=== PATIENT | male | born 1950 | race Caucasian/White ===

== ENCOUNTER → 2019-02-09 12:59 | Outpatient (CLI) | payer OTHER, SELFPAY | PROVIDERS: PCP Physician Assistant Medical; Visit Provider Orthopaedic Surgery | DX: Z01.818 Encounter for other preprocedural examination (principal) | CPT/HCPCS: 93005 ==

== ENCOUNTER 2019-02-24 10:47 | Inpatient (IN) | payer OTHER, SELFPAY ==
[2019-02-12 12:56] VITALS: BMI 29.8
[2019-02-24] VITALS (14 sets, daily range): BP systolic 100–160; BP diastolic 40–76; PULSE 70–105; RESP 13–24; TEMP 36.6–37; O2SAT 93–100; BMI 29.8
--- NOTE | 2019-02-24 06:00 | DI.RAD.S_ITS ---
PROCEDURE: XR KNEE RT 1TO2V INDICATIONS: post operative total right knee TECHNIQUE: 2 view(s) of the knee acquired. COMPARISON: [facility] [place], LEVI, XR KNEE ARTHRITIC SERIES RT, 12/16/2018, 11:20. FINDINGS: Bones: Patient is status post knee joint arthroplasty. Hardware components are in expected positions. Visualized bony structures are intact. Soft tissues: Overlying postoperative changes are noted. IMPRESSION: Total right knee arthroplasty with prosthesis in anatomic alignment. Dictated by: Nohelia Farfan M.D. on 02/24/2019 at 14:54 Approved by: Nohelia Farfan M.D. on 02/24/2019 at 14:55
[2019-02-24] MEDS: LACTATED RINGERS 1,000 ML 42 ML IV (11:09)
[2019-02-24] MEDS: CELECOXIB 200 MG CAPSULE PO (11:13)
[2019-02-24] MEDS: ACETAMINOPHEN 325 MG TABLET 975 MG PO ×3 (11:13→20:33)
[2019-02-24] MEDS: PREGABALIN 75 MG CAPSULE PO (11:13)
--- NOTE | 2019-02-24 12:09 | PM.PREOP ---
Pre-operative Note Interval Note History & Physical reviewed/Exam performed by Physician: Yes Changes to H&P: No
[2019-02-24] MEDS: CEFAZOLIN 2 GM/100 ML FROZ.PIGGY IV (12:35)
--- NOTE | 2019-02-24 13:05 | SUR.OPER ---
Supine on padded OR bed. Pillow under head, arms secured on padded armboards <90 degree abduction. Safety belt across torso. Non-operative leg secured with tape over blanket over lower leg. Operative leg secured in DeMayo/Deshawn positioner.
[2019-02-24] MEDS: BUPIVACAINE 0.25% W/ EPI 30 ML VIAL 60 ML INJ (13:14)
[2019-02-24] MEDS: BUPIVACAINE LIPOSOME 266 MG/20 ML VIAL INJ (13:15)
[2019-02-24] MEDS: MORPHINE 4 MG/ML INJ INJ (13:16)
[2019-02-24] MEDS: TRANEXAMIC ACID 1,000 MG VIAL 1000 MG INJ ×2 (13:17→14:24)
--- NOTE | 2019-02-24 14:21 | PM.OP.1 ---
Operative Date/Time/Diagnoses Date of procedure: 02/24/19 Time of procedure: 14:10 Pre-op diagnosis: Right knee osteoarthritis Post-op diagnosis: same Procedure & Clinicians Procedure: Right total knee replacement Same procedure as scheduled: Yes Indications: The patient has had progressively worsening right knee pain with radiographic changes consistent with arthritis. Non-operative management has failed and the patient has requested total knee replacement. The risks, benefits and alternatives to surgery were discussed with the patient prior to proceeding. Risks discussed included, but were not limited to, failure to relieve pain, stiffness, infection, nerve damage, deep venous thrombosis, pulmonary embolism, stroke, coma, heart attack, permanent paralysis and , as well as the potential need for eventual revision of the prosthetic. Surgeon: Sb Wilson [employer] Consultant: Sunil Yanes Click Yes if Unassisted: No Anesthesia Type: General, Spinal and Local Operative Notes Findings: Severe medial compartment osteoarthritis with moderate patellofemoral involvement. Closure Type: primary Specimen(s): none sent Prosthetic devices, grafts, tissues, transplants, or devices: Implants used in this procedure were manufactured by the [employer] and [employer] and included the BCS II Journey total knee replacement with a size 6 right cobalt chromium femoral component, size 5 right non porous tibial base plate, a 9 mm cross-linked polyethylene insert and a 32 mm oval Dodie II patella. Applied: implant(s) Estimated Blood Loss (mL): 25 Blood products transfused: none Tourniquet time (min): 51 Procedure in detail: The patient was seen in the pre-operative area, where the patient identified the right knee as the operative site and this was marked with my initials. The patient received pre-operative antibiotics, and was taken to the operating room and placed on the operative table in the supine position. After satisfactory anesthesia, a realtime court reporter out was performed. The right leg was encircled with a tourniquet about the proximal thigh, and the leg was prepared from the toes to the tourniquet with ChloroPrep in the usual fashion and draped through sterile drapes. The leg was elevated and exsanguinated with Eschmark bandage and the tourniquet inflated to 250 mmHg pressure. The knee was approached through an approximately 18 cm incision centered over the patella and carried into the knee through a medial parapatellar arthrotomy. The anterior osteophytes and soft tissues were removed. The rotational landmarks of [place]'s line and the transepicondylar axis were marked on the femur with electrocautery, and intramedullary guide holes for the femur and tibia were created. The distal femoral cut was made in 6 degrees of valgus using the intramedullary guide at the +2 cut setting due to a pre-existing flexion contracture. The proximal tibial cut was then made using the intramedullary guide, taking 9 mm of bone off the less involved side. The extension gap was checked and the rotation of the femoral component confirmed with the gap balancing system. The anterior, posterior and chamfer cuts were then made. The posterior osteophytes and soft tissues were then removed. The posterior capsule was injected with part of a mixture of 60 ml 0.25% Marcaine mixed with 20 ml Exparel and 4 mg of morphine for post-operative pain control. The remainder of this mixture was injected into the capsule and subcutaneous tissues during cement curing. The tibia was prepared with the rotation set by an extra medullary guide. Trial tibial and femoral components were then placed and the intercondylar notch cut through the femoral trial. Range of motion was 0-135 degrees, with good stability throughout the range. The patella was then cut to accommodate the patellar prosthetic. There was no need for a lateral release. The trials were then removed, and the femoral hole plugged with a bone plug. The bone was prepared with pulsatile lavage, and dried with a sponge. Cement was applied and the final prosthetics placed. Excess cement was removed during and after cement curing. After confirming there was no extruded cement posteriorly, the final tibial insert was placed. The knee was copiously irrigated and the tourniquet deflated. Hemostasis was obtained. The capsule was closed with interrupted # 2 polyester suture. The subcutaneous layer was closed with 3-0 Vicryl, and the skin with a running 3-0 V-Lock suture and SteriStrips. An Aquacel Ag dressing was applied and the patient was taken to recovery having tolerated the procedure well. Complications: none Condition: stable Disposition: PACU Plan for aftercare: The patient will be maintained on a standard total knee replacement protocol with weight bearing as tolerated. The patient will receive aspirin and sequential compression devices for DVT prophylaxis. The patient will be discharged home when safe for the home environment.
--- NOTE | 2019-02-24 14:37 | SUR.PHASEI ---
care transferred to Jacoby Lovett RN,report given.
--- NOTE | 2019-02-24 14:41 | SUR.PHASEI ---
assumed care from Carlos A Bustamante RN. Pt in stable condition, mostly sleeping but arousing to name
--- NOTE | 2019-02-24 15:31 | SUR.PHASEI ---
Pt transferred to room 213 in stable condition, report given to CHARLES Silva. VSS, SCDs started, pt continued to deny pain.
--- NOTE | 2019-02-24 15:33 | PT.IPTN ---
Current Diagnoses Unilateral primary osteoarthritis, right knee (02/24/19) Surgery Performed Operation Date: 02/24/19 12:45 Actual Procedures p Total Knee Arthroplasty(Right) - Sb Wilson MD Physical Therapy Treatment Note M3 PT-IP Subjective Start: 02/24/19 15:32 Freq: NEEDED Status: Active Protocol: Document 02/24/19 15:32 AB (Rec: 02/24/19 15:33 AB [id number]) Subjective Physical Therapy Visit Type Notes checked on pt and nurse stated that pt just came up to the floor ~ 3 min ago. pt stated that he wants to wait at this time but will be willing to try to do it later today.
[2019-02-24] MEDS: LACTATED RINGERS 1,000 ML 125 ML IV ×2 (15:39→23:57)
[2019-02-24] MEDS: OXYCODONE IR 5 MG TABLET PO ×2 (16:18→23:59)
--- NOTE | 2019-02-24 17:12 | PT.IIE ---
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) HLD (hyperlipidemia) (Acute) HTN (hypertension) (Acute) Physical Therapy Inpatient Evaluation/Re-Eval M1 PT/OT-IP Prior Functional Status Start: 02/24/19 15:32 Freq: NEEDED Status: Active Protocol: Document 02/24/19 17:07 [facility] (Rec: 02/24/19 17:12 [facility] [id number]) Medical Review Prior Functional Status Medical History Reviewed Yes Diet/Fluid Consistency Regular Communication WNL Mobility and Gait indep without AD, had to move slowly d/t pain Activities of Daily Living and IADL's Indep Prior Functional Level (Other details) Stays at friends house at night but stays at [place] house in [place] community during the day. 5STE at friends house Social History Household Members none Living Arrangements House Number of Floors (Floors) One Floor Number of Stairs To Enter/Railing? no steps to enter Home Environment Standard Height Toilet Tub/Shower Home Equipment Front Wheel Walker Quad Cane Straight Cane Raised Toilet Seat w/Armrests Employment Status Retired M2 PT-IP Current Condition Start: 02/24/19 15:32 Freq: NEEDED Status: Active Protocol: Document 02/24/19 17:07 [facility] (Rec: 02/24/19 17:12 [facility] [id number]) Physical Therapy Current Condition Current Condition Evaluation Date 02/24/19 Treatment Diagnosis R TKA Weight Bearing Status Weight Bearing Status Weight Bear as Tolerated M3 PT-IP Subjective Start: 02/24/19 15:32 Freq: NEEDED Status: Active Protocol: Document 02/24/19 17:07 [facility] (Rec: 02/24/19 17:12 [facility] [id number]) Subjective Physical Therapy Visit Type Type Initial Evaluation Visit Start Time 16:00 Visit Stop Time 16:50 Total Visit Minutes 50 Number of BRIDGE EXPERT Visits 0 Physical Therapy Visit Comments Patient Goals Pt plans to go home tomorrow or day after depending on how he is doing. Reports he has good support Therapy Pain Assessment Pain When Pain Assessed During Mobility Pain Present Pain Present Pain Reported Location R knee Description Aching Pain Management Techniques Apply Cold Re-positioning Timing of Activity with Medications M4 PT-IP Mobility and Gait Start: 02/24/19 15:32 Freq: NEEDED Status: Active Protocol: Document 02/24/19 17:07 [facility] (Rec: 02/24/19 17:12 [facility] [id number]) PT-Bed Mobility Assessment Supine to Sit Supine to Sit Standby Assistance Head of Bed Elevated Bedrails Scooting Scooting to Edge of Bed Standby Assistance PT-Transfer Assessment Sit to and From Stand Sit to and from Stand Contact Guard Assistance Use of Upper Extremities Equipment Transfer Assistive Device Gait Belt Front Wheeled Walker Orthotic/Prosthetic Devices or Brace: No Comments Mobility Comments Pt stood to amb around room then sat down Gait Assessment Gait Gait Assistance Required: Contact Guard Assist Distance (Feet) 50 Able to Maintain Weight Bearing Status Yes During Gait Assistive Devices Assistive Device Gait Belt Front Wheeled Walker Gait Deviations General Gait Pattern Antalgic Decreased Stride Length Flexed Trunk Factors Limiting Gait Function Factors Limiting Gait Function Decreased Strength Limited Range of Motion Pain Comments Gait Comments Pt amb with small steps around with cueing for step to pattern and use of UE with FWW . He was able to amb with CGA PT-Balance Assessment Sitting Balance and Reactions Static Sitting Balance Ability Good Dynamic Sitting Balance Ability Good Standing Balance and Reactions Static Standing Balance Ability Fair Dynamic Standing Balance Ability Fair Device Used FWW M5 PT-IP Objective Assessments Start: 02/24/19 15:32 Freq: NEEDED Status: Active Protocol: Document 02/24/19 17:07 [facility] (Rec: 02/24/19 17:12 [facility] [id number]) Orientation Orientation/Cognition Level of Alertness Alert Gross Range of Motion Lower Extremity ROM Assessment Right Impaired Strength Lower Extremity Strength Assessment Right Impaired M6 PT-IP Treatment Start: 02/24/19 15:32 Freq: NEEDED Status: Active Protocol: Document 02/24/19 17:07 [facility] (Rec: 02/24/19 17:12 [facility] [id number]) Physical Therapy Treatment Education Education Provided Weight Bearing Status Post-Op Packet Safety M7 PT-IP Assessment and Plan Start: 02/24/19 15:32 Freq: NEEDED Status: Active Protocol: Document 02/24/19 17:07 [facility] (Rec: 02/24/19 17:12 [facility] [id number]) PT Summary Assessment and Plan Potential Rehabilitation Potential Good Status of Condition at Evaluation Evolving Summary Impairments Pain ROM Strength Balance Bed Mobility Transfers Gait Activity Tolerance Assessment Summary Pt had R TKA today and at this time is having good pain control and overall good mobility with cueing for technique. He is motivated and has good friend support and is likely to cont to advance well to be safe to return home after hospitalization. Goals Bed Mobility Goal Independent Transfer Goal Independent Gait Goal Standby Assistance Gait Distance 150ft Other Goals up/down 5 stairs SBA Days to Meet Goals 3 Frequency of Treatment Frequency Of Treatment Twice a Day Treatment Plan Physical Therapy Treatment Plan Bed Mobility Training Transfer Training Gait Training Therapeutic Exercise Balance Retraining Post Op Education Discharge Planning Neuromuscular Re-ed Other Recommendations and Next Treatment stairs & exercises, bed Focus mobility to/from flat bed Recommendations To Nursing Amount of Assist Needed 1 Person Assist Discharge Recommendations PT Discharge Recommendations Home with Assistance Outpatient PT
[2019-02-24] MEDS: ASPIRIN EC 81 MG TABLET PO (20:33)
[2019-02-24] MEDS: DOCUSATE 100 MG CAPSULE PO (20:34)
[2019-02-24] MEDS: lamoTRIgine 100 MG TABLET 200 MG PO (20:34)
[2019-02-24] MEDS: ATORVASTATIN 20 MG TABLET PO (20:34)
--- NOTE | 2019-02-24 23:07 | PC.NURSE ---
Pt is doing very well with minimal pain, PO oxycodone, as needed; c/m/s to right LE present and PPP; Karlos wrap and Aquacell drsg c/d/i; VSS; IV fluids infusing; tolerating regular diet; IS 2500 X 10 breaths, instructed to use Q 1 H
[2019-02-25] MEDS: TRAZODONE 100 MG TABLET 200 MG PO
[2019-02-25] MEDS: SODIUM CHLORIDE 0.9% FLUSH 10 ML IV ×2 (01:10→08:59)
--- NOTE | 2019-02-25 01:23 | CM.MNRNOTE ---
0110 Pt. requested to stop LR, states I can't sleep I been using the urinal all the time. Also I been drinking lots of water. LR Dc'd. & IV access saline locked. Will cont. POC & monitor.
[2019-02-25] MEDS: OXYCODONE IR 5 MG TABLET PO ×3 (05:33→12:23)
[2019-02-25 05:42] VITALS: BP 114/53; PULSE 75; RESP 17; TEMP 36.8; O2SAT 96
--- NOTE | 2019-02-25 06:59 | PC.NURSE ---
Pt. refused blood draw earlier. Talked to pt. & he agreed to a blood draw now. Lab called & informed Mara that pt. agreed to draw his blood now. Will report to day RN.
[2019-02-25 07:15] LABS: Hematocrit 35.1 % (41-53)
[2019-02-25 07:20] LABS: Hemoglobin 12.8 g/dL (13.5-17.5)
--- NOTE | 2019-02-25 07:28 | P.DS_ITS ---
History of Present Illness Date Patient Seen: 02/25/19 Time Patient Seen: 07:27 Chief complaint: [id number] Narrative: The history and physical are contained in the chart previously completed note. Please refer to that note for this information. Discharge Providers Date of admission: 02/24/19 10:47 Discharge Date: 02/25/19 Primary care physician: Corrina Ramsay PA-C Consults: 02/24/19 15:26 Consult to Discharge Planning Routine Comment: Consult to Physical Therapy Evaluate & Treat Comment: Physician Instructions: postop TKA protocol Discharge provider: Sb Wilson MD Summary Discharge Diagnosis: 1. Right knee osteoarthritis 2. Mild post hemorrhagic anemia Hospital Course: The patient was admitted to the hospital and taken directly to the operating room on February 24, 2019 where he underwent a right total knee replacement. He was stable overnight and was quite comfortable on postoperative day 1. At the time of this dictation it is anticipated he will be able to discharge today. Status at Discharge Cognitive/behavioral status at discharge: oriented Functional status at discharge: uses cane/walker Overall status at discharge: patient is progressing back to baseline Time Spent with Patient Less than 30 minutes Exam Vital Signs (past 8 hours): - 02/25/19 05:42 Temperature 98.3 F Pulse Rate 75 Respiratory Rate 17 Blood Pressure 114/53 L Pulse Oximetry 96 Oxygen Delivery Method Room Air Oxygen Flow Rate 0 Narrative Exam Narrative: Right knee wound is dressed with no drainage on the bandage. Calf is soft. Light touch and motion are intact in the right lower extremity. Objective Labs Result Diagrams: 02/25/19 07:05 Labs: Laboratory Results - last 24 hr 02/25/19 07:05 Hgb 12.8 L Hct 35.1 L Discharge Plan Discharge Plan Patient Disposition: Home Discharge Med Rec/Prescriptions Prescriptions: New acetaminophen 325 mg Tablet 975 mg PO TID 30 Days Qty: 270 RF: 0 aspirin 81 mg Tablet,Delayed Release (Dr/Ec) 81 mg PO BID 42 Days Qty: 84 RF: 0 oxycodone 5 mg Tablet 5 mg PO Q3HR PRN (Reason: Pain, Moderate (4-6)) Qty: 40 RF: 0 hydroxyzine pamoate 25 mg Capsule 25 mg PO Q6HR PRN (Reason: Nausea) Qty: 40 RF: 0 Continued venlafaxine [Effexor XR] 75 MG capsule,extended release 24hr 2 tab PO QAM Qty: 0 RF: 0 lamotrigine [Lamictal] 100 MG tablet 200 mg PO HS Qty: 0 RF: 0 atorvastatin [Lipitor] 20 MG tablet 20 mg PO HS Qty: 0 RF: 0 trazodone 100 MG tablet 2 tab PO HS Qty: 0 RF: 0 multivitamin [Multiple Vitamins] 1 EACH tablet 1 tab PO QDAY Qty: 0 RF: 0 cholecalciferol (vitamin D3) [Vitamin D3] 1,000 UNIT tablet 1,000 unit PO QDAY Qty: 0 RF: 0 latanoprost 0.005 % drops 1 drp OPHTH QAM Qty: 0 RF: 0 losartan 100 MG tablet 100 mg PO QAM Qty: 0 RF: 0 diclofenac sodium 1 % Gel 2 g TOPICAL QAM RF: 0 Vraylar 1.5 mg Capsule 1.5 mg PO DAILY RF: 0 Follow up/Referrals: Sb Wilson MD [Physician] - 3-5 Days Corrina Ramsay PA-C [Primary Care Provider] - Provider Discharge Instructions Diet: Diet as Tolerated and Regular Activity: You may bear weight as tolerated on her right leg. Cold/Heat Therapy: Apply ice to the right knee for 15 minutes every hour as need ed for pain. Skin/Wound/Dressing Care Report to your healthcare provider any signs of infection, such as:: chills, fever, night sweats, increased pain, unusual drainage and unusual redness Dressing: You may remove the Karlos wrap 3 days after surgery. Leave the deeper dressing in place until your 1st follow-up. If the center strip of the deeper dressing becomes saturated with either water or blood please call the office. You may shower with the deeper dressing in place. Visit Report/Discharge Packet Instructions: DI for Knee Replacement Stand Alone Forms: Surgery Discharge Discharge Data Primary Care Provider: Corrina Ramsay Attending Provider: Sb Wilson Admit Date/Time: 02/24/19 10:47
[2019-02-25 07:53] VITALS: BP 126/91; PULSE 71; RESP 18; TEMP 36.7; O2SAT 96
--- NOTE | 2019-02-25 08:08 | PC.NURSE ---
Addendum entered by Shannan Grant R.N. 02/25/19 12:59: DC - reviewed dc instructions with pt and spouse, given 5mg po oxycodone with lunch for transport home, SL removed, belongings gathered, including glasses, cell phone and spool cleaner, back pack, clothing, shoes, own fww and cane, tsf to and escorted to family car by order runner. Addendum entered by Shannan Grant R.N. 02/25/19 10:46: PAIN/MS - given 5mg oxycodone prior to mobilization with phys therapy, amol up with PT ambul w/fww, gait steady, cleared for DC. Original Note: AM NOTE - pt lying bed, alert, minimal discomfort r knee, states 1-2 on scale 0/10, earlier oxycodone providing adequate relief, small spot shadow drainage distal end aquaclell, edwin wrap over, + cms, wiggles toes, moving ankle on command, scd on, denies nausea, + flatus, discussed pain mgt and mobilization this am with phys therapy.
[2019-02-25] MEDS: LATANOPROST 0.005% OPHTH 2.5 ML 1 DROPS EYE-BOTH (08:58)
[2019-02-25] MEDS: ASPIRIN EC 81 MG TABLET PO (08:59)
[2019-02-25] MEDS: MELOXICAM 7.5 MG TABLET 15 MG PO (09:00)
[2019-02-25] MEDS: ACETAMINOPHEN 325 MG TABLET 975 MG PO (09:00)
[2019-02-25] MEDS: DOCUSATE 100 MG CAPSULE PO (09:01)
[2019-02-25] MEDS: VENLAFAXINE ER 75 MG CAP 150 MG PO (09:02)
[2019-02-25] MEDS: LOSARTAN 50 MG TABLET 100 MG PO (09:02)
[2019-02-25 11:45] VITALS: BP 131/60; PULSE 71; RESP 18; TEMP 36.6; O2SAT 95
--- NOTE | 2019-02-26 08:28 | CM.IDA ---
Late Entry/Initial DCP Assessment Note: Pt is a 68 yo male, resident of [place], now POD#1 from Rt knee surgery w/ Dr Wilson . PCP: Corrina Ramsay Payer: Regina PABON Reviewed chart, pt discussed in multidisciplinary rounds this morning. Therapy has cleared pt for return home w/family to assist and pt has planned for home, DC order from Ortho [facility] has already been initiated this morning pending clearance from therapy team. No needs expected from DC planning team although will remain available in case this changes today. RYAN Villagran
== END 2019-02-25 13:15 | disposition home or self-care (01) | DRG 470 ==
PROVIDERS: Admitting Provider Orthopaedic Surgery; PCP Physician Assistant Medical; Visit Provider Orthopaedic Surgery
PROC: 0SRC0JZ Replacement of Right Knee Joint with Synthetic Substitute, Open Approach (ICD-10-PCS; CPT 27447; principal; 2019-02-24 12:45)
DX: M17.11 Unilateral primary osteoarthritis, right knee (principal); G47.33 Obstructive sleep apnea (adult) (pediatric); I10 Essential (primary) hypertension; E78.5 Hyperlipidemia, unspecified; F32.9 Major depressive disorder, single episode, unspecified
CPT/HCPCS: 36415; 73560; 85014; 85018; 97116; 97162; 97530; C1776; C9290; J0690; J1100; J2250; J2270; J2405; J2704

== ENCOUNTER → 2019-04-29 09:31 | Outpatient (CLI) | payer OTHER, SELFPAY ==
[2019-02-24 15:28] VITALS: BMI 29.8
--- NOTE | 2019-04-29 | DI.NM.S_ITS ---
PROCEDURE: NM JAMESON PERF SPECT R&S PHARM Rest and pharmacological stress myocardial perfusion SPECT with gated imaging and ejection fraction RADIOPHARMACEUTICAL: 13.2 mCi Tc-99m tetrafosmin IV at rest and 26.1 mCi Tc-99m tetrafosmin IV at peak effect of pharmacological stress. [id number] was performed. INDICATIONS: Abnormal electrocardiogram [ECG] [EKG] TECHNIQUE: Radiopharmaceutical was injected at peak stress test, and also at rest. SPECT images were obtained. SPECT myocardial perfusion images were displayed in short axis, horizontal long axis, and vertical long axis views. Gated images were reviewed using [employer] software. COMPARISON: None. CARDIAC STRESS: A pharmacologic stress test was performed under the supervision of an attending staff, using an infusion of lexiscan 0.4mg IV X1. Hemodynamic data: There is normal blood pressure and heart rate response to pharmacologic stress. Symptoms: The patient denied anginal chest pain. Aminophylline: none EKG: No diagnostic changes of ischemia; no ectopy. FINDINGS: Raw data: There is good myocardial uptake of radiotracer. No significant motion artifacts. Left ventricle function: Gated images demonstrate normal left ventricular wall thickening. No segmental wall motion abnormalities. No transient ischemic dilation; TID is 0.87 (normal less than 1.3). Left ventricle resting end diastolic volume is 115 mL. Left ventricle stress ejection fraction is 70%; normal range is above 45%. Myocardial perfusion: There is a mildly intense small defect at the apex during rest that improves with stress, suggesting artifact but old apical non-transmural infarct can't be excluded. No ischemia. IMPRESSION: Low risk, probably nuclear stress test. 1) Probably normal perfusion images. There is a mildly intense small defect at the apex during rest that improves with stress, suggesting artifact but old apical non-transmural infarct can't be excluded. No ischemia.. 2) Normal left ventricular size, wall motion, and systolic function (EF post stress 70%). 3) No ECG evidence of ischemia. 4) No angina during the study. 5) No prior nuclear stress test available for comparison. Dictated by: Claudette Pickering MD on 04/29/2019 at 16:15 Approved by: Claudette Pickering MD on 04/29/2019 at 16:18
--- NOTE | 2019-04-29 14:51 | P.PCN_ITS ---
Cardiac Stress Test Report Referral & Results Date Patient Seen: 04/29/19 Time Patient Seen: 14:30 Requesting provider: Corrina Ramsay Indication: Pre-operative assessment Procedure Note: After both written and verbal informed consent the patient had an IV started by the diagnostic imaging RN and then was hooked up to the treadmill monitoring system. The patient was placed on the treadmill at 1 mile an hour with no elevation and was then injected with the Bella scan material. The Cardiolite was then immediately administered. The patient spent an additional 2-3 minutes on the treadmill before being returned to the [facility] in the supine position. The patient had a normal response to all infused materials. No signs or symptoms of angina. No change in rhythm during the test. Impression: Successful Bella protocol. Will wait perfusion imaging. Please note: Actual ECG tracings can be found in the PACS system.
== END ==
PROVIDERS: PCP Physician Assistant Medical; Visit Provider Physician Assistant Medical
DX: R94.31 Abnormal electrocardiogram [ECG] [EKG] (principal)
CPT/HCPCS: 78452; 93016; 93017; 93018; A9502; J2785

== ENCOUNTER → 2019-09-04 08:07 | Outpatient (CLI) | payer OTHER, SELFPAY ==
[2019-02-24 15:28] VITALS: BMI 29.8
--- NOTE | 2019-09-04 | DI.ECHO.S_ITS ---
[facility] +---------+ : : [address] : : : : [id number] : : : : Phone: [phone]+ Echocardiogram Report + + :Name: FAUZIA VILLATORO Study Date: 09/04/2019 Height: 70 in : :[facility] Exam Location: IS Weight: 210 lb : : Gender: Male BSA: 2.1 m2 : :: 1950 Age: 69 yrs BP: 140/60 mmHg: :Reason For Study: SOB : :Ordering Physician: Nilson Voss Performed By: Iram Page : + + Interpretation Summary The left ventricle is mildly hyperdynamic. The ejection fraction is estimated to be 70-75%. There has been no significant change since the previous study. The right ventricle is normal in size and function. No significant valvular pathology seen. The aortic root is borderline dilated. 4.0 cm in diameter. The ascending aorta is mildly enlarged. 4.1 cm in diameter.In April 2011 aortic root was 3.8 cm and ascending aorta 3.4 cm. Procedure: A two-dimensional transthoracic echocardiogram with color flow and Doppler was performed. The study quality was technically adequate. Comparison is made with the echocardiogram of 04/11/2011. The heart rate ranged between 63-89 bpm during the study. The patient was in normal sinus rhythm during the exam. Left Ventricle: The left ventricle is normal in size. Proximal septal thickening is noted. There is no echo evidence for significant left ventricular outflow tract obstruction. There is no thrombus. The ejection fraction is estimated to be 70-75%. The left ventricle is mildly hyperdynamic. There has been no significant change since the previous study. There are no focal wall motion abnormalities. Diastolic parameters suggest a relaxation abnormality of the left ventricle, consistent with probable normal filling pressures. Right Ventricle: The right ventricle is normal in size and function. Atria: The left atrium is mildly dilated. There has been no significant change since the previous study. Right atrial size is normal. Doppler interrogation and injection of saline echo contrast shows no evidence for an interatrial shunt. Mitral Valve: The mitral valve is normal in structure and function. There is trace mitral regurgitation. Aortic Valve: The aortic valve is trileaflet. The aortic valve is slightly calcified. There is no aortic valve stenosis. There is trace aortic regurgitation. Tricuspid Valve: The tricuspid valve is normal in structure and function. There is a trace or physiologic amount of tricuspid regurgitation. Pulmonary artery pressures cannot be estimated because of the lack of a measurable TR jet velocity. Pulmonic Valve: The pulmonic valve is not well seen, but is grossly normal. There is trace pulmonic regurgitation. Great Vessels: The aortic root is borderline dilated. The ascending aorta is mildly enlarged. This is increased compared to the previous study. The aortic arch is mildly enlarged. The pulmonary artery is normal size. The IVC is of normal diameter and collapses greater than 50% with a sniff. This suggests a low right atrial pressure of 3 mm Hg. Pericardium/ Pleura There is no pericardial effusion. There is no pleural effusion. MMode/2D Measurements & Calculations LVIDd: 4.9 cm LVOT diam: 2.5 cm LVIDs: 2.8 cm Ao root diam: 4.0 cm FS: 43.5 % asc Aorta Diam: 4.1 cm IVSd: 0.77 cm Ao Arch Diam (Prox Trans): 3.4 cm LVPWd: 0.81 cm LV jerez. diameter/BSA (cm/m^2): 2.3 LV sys. diameter/BSA (cm/m^2): 1.3 LA A2 area: 22.0 cm2 RA long axis: 4.8 cm LA A4 area: 21.9 cm2 RA area: 18.2 cm2 LA length (vol): 5.6 cm RA vol: 58.8 ml LA vol: 73.0 ml RA : 27.6 ml/m2 LA vol index: 34.3 ml/m2 RVD1 (basal): 4.4 cm RVD2 (mid): 3.4 cm TAPSE: 3.2 cm Doppler Measurements & Calculations Ao V2 max: 165.4 cm/sec LVOT Max Ever: 108.0 cm/sec Ao V2 mean: 118.7 cm/sec LV V1 max P.7 mmHg Ao max P.9 mmHg LV V1 VTI: 23.9 cm Ao mean P.0 mmHg JOSE(I,D): 4.0 cm2 Ao V2 VTI: 29.0 cm JOSE(V,D): 3.2 cm2 sev ratio: 0.83 JOSE indexed to BSA (cm^2/m^2): 1.9 MV E max ever: 55.3 cm/sec PA V2 max: 70.6 cm/sec MV A max ever: 69.4 cm/sec PA V2 mean: 47.3 cm/sec MV E/A: 0.80 PA mean P.1 mmHg Med Peak E' Ever: 5.2 cm/sec PA Accel Time: 0.05 sec E/E' med: 10.7 Lat Peak E' Ever: 7.0 cm/sec E/E' lat: 7.9 E/e' average: 9.3 MV dec time: 0.21 sec MV P1/2t: 64.5 msec MV P1/2t max ever: 57.1 cm/sec SV(LVOT): 116.6 ml MVA(P1/2t): 3.4 cm2 Reading Physician:02:18 PM
== END ==
PROVIDERS: PCP Physician Assistant Medical; Visit Provider Nurse Practitioner
DX: R06.02 Shortness of breath (principal); I77.89 Other specified disorders of arteries and arterioles
CPT/HCPCS: 93306

== ENCOUNTER → 2020-02-25 15:44 | Outpatient (CLI) | payer OTHER, SELFPAY ==
[2019-02-24 15:28] VITALS: BMI 29.8
--- NOTE | 2020-02-25 | DI.CT.S_ITS ---
PROCEDURE: CT CHEST WO CON INDICATIONS: Other disorders of lung TECHNIQUE: Noncontrast 5 mm thick sections acquired from the pulmonary apices to the posterior costophrenic angles. 1 mm lung window, 5 mm thick coronal and sagittal and 7 mm axial MIP reformats were then acquired. For radiation dose reduction, the following was used: automated exposure control, adjustment of mA and/or kV according to patient size. COMPARISON: None. FINDINGS: Image quality: Excellent. Scattered subsegmental atelectasis and/or scarring. No focal consolidation. Calcified granuloma seen in the right upper lobe. 1 mm pulmonary nodule present within the left lung base image 185/3. No pleural effusions or pneumothorax. Central and peripheral airways are patent and normal in caliber. Mediastinum: Heart size is normal. Coronary artery calcifications are present. No pericardial effusion. No mediastinal adenopathy by size criteria. Thoracic aorta and central pulmonary arteries are normal in size. Esophagus is normal in caliber. No hiatal hernia. Bones and chest wall: No vertebral body compression fracture. Spondylytic changes and facet arthropathy. No axillary or supraclavicular adenopathy by size criteria. Thyroid gland negative . Incidentally noted 1 mm right renal calculi IMPRESSION: 1 mm left basilar pulmonary nodule, which could be followed up in 1 year to exclude early malignant or metastasis. Scattered scarring/atelectasis. No acute consolidation. Coronary artery disease Incidental right nephrolithiasis as above Dictated by: Anatoliy Dailey M.D. on 02/25/2020 at 16:28 Approved by: Anatoliy Dailey M.D. on 02/25/2020 at 16:45
== END ==
PROVIDERS: PCP Physician Assistant Medical; Referring Provider Physician Assistant Medical; Visit Provider Physician Assistant Medical
DX: J98.4 Other disorders of lung (principal); R91.1 Solitary pulmonary nodule; I25.10 Atherosclerotic heart disease of native coronary artery without angina pectoris; N20.0 Calculus of kidney
CPT/HCPCS: 71250

== ENCOUNTER 2021-02-13 15:40 | Emergency (ER) | payer OTHER, SELFPAY ==
[2019-02-24 15:28] VITALS: BMI 29.8
[2021-02-13 15:45] VITALS: BP 132/61; PULSE 73; RESP 20; TEMP 36.6; O2SAT 97
[2021-02-13] MEDS: TET,DIPH,PERTUSS(ACELL),VAC/PF 0.5 ML SYRINGE IM (15:54)
--- NOTE | 2021-02-13 17:24 | DI.RAD.S_ITS ---
PROCEDURE: XR ELBOW LT MIN 3V INDICATIONS: swelling/ pain x 1 month TECHNIQUE: 3 views of the elbow were acquired. COMPARISON: None. FINDINGS: Bones: No fractures or dislocations. Small olecranon osteophyte. No suspicious bony lesions. Soft tissues: No elbow joint effusion. No suspicious soft tissue calcifications. IMPRESSION: No acute osseous abnormality. Small olecranon osteophyte. Dictated by: Chandra Robertson M.D. on 02/13/2021 at 17:39 Approved by: Chandra Robertson M.D. on 02/13/2021 at 17:41
[2021-02-13 20:01] VITALS: PULSE 66; O2SAT 99
[2021-02-13 20:02] VITALS: BP 145/65; PULSE 66; O2SAT 99
[2021-02-13 20:30] VITALS: BP 129/61; PULSE 67; O2SAT 99
--- NOTE | 2021-02-13 20:55 | ED_ITS ---
HPI - Skin/Abscess/Foreign Bdy General Chief complaint: Skin/Abscess/Foreign Body Stated complaint: LEFT ARM ELBOW THINKS SPIDER BITE Time Seen by Provider: 02/13/21 18:01 Source: patient Mode of arrival: Ambulatory History of Present Illness HPI narrative: 70-year-old male nonsmoker with history of hyperlipidemia and hypertension presents with family in the chief complaint of a spider bite on his left elbow for the past 3 weeks or so. He states that he went to sleep a few weeks ago feeling fine and awoke with redness, swelling and pain of his left elbow in the absence of any injury. He states it was always overlying his elbow bone and he never had any trouble with flexion or extension at the elbow. He denies any fever or chills nor history of the same. He did not see a spider on him nor did he witness any insect bite or sting him. He did have more impressive swelling a few days ago and maybe had a small amount of drainage. Related Data Home Medications Medication Instructions Recorded Confirmed atorvastatin 20 mg tablet (Lipitor) 20 mg PO HS #0 04/10/11 02/24/19 cholecalciferol (vitamin D3) 25 1,000 unit PO QDAY #0 04/10/11 02/24/19 mcg (1,000 unit) tablet (Vitamin D3) lamotrigine 100 mg tablet 200 mg PO HS #0 04/10/11 02/24/19 (Lamictal) multivitamin (Multiple Vitamins) 1 tab PO QDAY #0 04/10/11 02/12/19 trazodone 100 mg tablet 2 tab PO HS #0 04/10/11 02/24/19 venlafaxine 75 mg capsule,extended 2 tab PO QAM #0 04/10/11 02/24/19 release 24 hr (Effexor XR) latanoprost 0.005 % eye drops 1 drp OPHTH QAM #0 04/11/17 02/24/19 losartan 100 mg tablet 100 mg PO QAM #0 04/11/17 02/24/19 cariprazine 1.5 mg capsule 1.5 mg PO DAILY 02/12/19 02/24/19 (Vraylar) diclofenac sodium 1 % topical gel 2 g TOPICAL QAM 02/12/19 02/24/19 Previous Rx's Medication Instructions Recorded hydroxyzine pamoate 25 mg capsule 25 mg PO Q6HR PRN #40 cap 02/25/19 oxycodone 5 mg tablet 5 mg PO Q3HR PRN #40 tab 02/25/19 doxycycline hyclate 100 mg tablet 100 mg PO BID #20 tab 02/13/21 Allergies Allergy/AdvReac Type Severity Reaction Status Date / Time No Known Allergies Allergy Uncoded 02/24/19 11:24 Review of Systems Review of Systems Narrative: GENERAL: Denies chills, fatigue, malaise, fever, sweats. HEENT: Denies sinus pain, ear pain, sore throat, difficulty swallowing, dizziness. RESPIRATORY: Denies dyspnea, cough, wheezing, hemoptysis, sputum. CARDIOVASCULAR: Denies chest pain, palpitations, orthopnea, edema, GASTROINTESTINAL: Denies nausea, vomiting, abdominal pain, diarrhea, constipation, melena. : Denies dysuria, frequency, incontinence, hematuria, urinary retention. MUSCULOSKELETAL: denies weakness, joint pain, or bony pain SKIN: See HPI NEUROLOGIC: Denies weakness, headache, numbness, change in speech, confusion, seizures, incoordination. PSYCHIATRIC: No concerning psychosocial issues. 12 point review of systems is negative except for those stated above Patient History Medical History Bilateral knee pain Depression Eye pressure Hepatitis A 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 HLD (hyperlipidemia) HTN (hypertension) Overactive bladder Pectus excavatum Pneumonia Sleep apnea Substance abuse in remission Surgical History Hx of tonsillectomy Social History household members: none Smoking Status: Never smoker alcohol intake: former Smoking Status: Never smoker Substance Use Type: former substance user Exam Narrative Exam Narrative: GEN: AOx3 and in mild distress EYES: Pupils are equal, round, and reactive to light and accommodation. Extraoccular muscles are intact bilaterally. There is no subconjunctival hemorrhage or exudate. CHEST: Lungs are clear to auscultation bilaterally and free of wheezes, rales, or rhonchi. Heart rate is regular rhythm, there are no murmurs, clicks, rubs, or gallops. There is no chest wall tenderness. ABD: Abdomen is soft and nontender. There is no guarding or rebound. Bowel sounds are normal in all 4 quadrants. There is no mass or organomegaly. EXT: Full painless range of motion at left elbow, no issue with flexion, extension nor pronation or supination. There is some erythema and minimal induration overlying the left olecranon with a small central area of ulceration, no active drainage, minimal surrounding erythema, no lymphangitis. SKIN: Warm, pink, and dry. No erythema or rash Initial Vital Signs Initial Vital Signs: Vital Signs Temperature 97.8 F 02/13/21 15:45 Pulse Rate 73 02/13/21 15:45 Respiratory Rate 20 02/13/21 15:45 Blood Pressure 132/61 02/13/21 15:45 Pulse Oximetry 97 02/13/21 15:45 Course Orders Ordered: ED Orders 02/13/21 17:24 XR elbow LT min 3V Stat Discontinued Medications Diphtheria/Tetanus/Acell Pertussis (Tet,Diph,Pertuss(Acell),Vac/Pf 0.5 Ml Syringe) 0.5 ml IM .ONCE ONE Stop: 02/13/21 15:48 Last Admin: 02/13/21 15:54 Dose: 0.5 ml Documented by: MARIA Vital Signs Vital signs: Vital Signs - 8 hr 02/13/21 20:01 02/13/21 20:02 02/13/21 20:30 Pulse Rate 66 66 67 Blood Pressure 145/65 H 129/61 Pulse Oximetry 99 99 99 02/13/21 21:00 Pulse Rate 65 Blood Pressure 141/65 H Pulse Oximetry 99 MDM - Skin/Abscess/Foreign Bdy Imaging Data Extremity x-ray #1: Radiologist's Impression: Camden Fitzgerald DO Find Patient Imaging - Pete Bassett 70 M 1950 ACTIVITY DATE EXAM STATUS AUTHOR 02/13/21 17:24 Signed Call,[address] [id number] ReportSigned Patient: Pete Bassett [facility]#: [id number]: 9Acct:[id number]/Sex: 70 / MDate of Service: 02/13/21Loc: EDAccession Number: [id number] Procedure: XR elbow LT min 3V Ordering Provider: Corina Leija D.O. PROCEDURE: XR ELBOW LT MIN 3V INDICATIONS: swelling/ pain x 1 month TECHNIQUE: 3 views of the elbow were acquired. COMPARISON: None. FINDINGS: Bones: No fractures or dislocations. Small olecranon osteophyte. No suspicious bony lesions. Soft tissues: No elbow joint effusion. No suspicious soft tissue calcifi cations. IMPRESSION: No acute osseous abnormality. Small olecranon osteophyte. Dictated by: Chandra Robertson M.D. on 02/13/2021 at 17:39 Approved by: Chandra Robertson M.D. on 02/13/2021 at 17:41 MDM Narrative Medical decision making narrative: Reassuring exam and history. Likely resolving infected olecranon bursitis, no ongoing fluctuance to suggest he is a candidate for incision and drainage. Very localized erythema and no joint effusion or painful range of motion to suggest septic arthritis. Return precautions given and questions answered to his apparent satisfaction Discharge Plan Departure Patient Disposition: Home Clinical Impression: Bursitis, olecranon Qualifiers: Laterality: left Qualified Code(s): M70.22 - Olecranon bursitis, left elbow Instructions: DI for Elbow Bursitis Activity Restrictions/Additional Instructions: *You have been diagnosed with [left elbow olecranon bursitis] *What to do: *Please continue to take your regular medications as directed. [ x] New medication prescriptions sent to your pharmacy: [ [facility]] [ ] New medication written as a paper prescription [ ] No new medications given *Please follow up with your primary care provider in 2-3 days, call for an appointment. Let them know you were seen in the Emergency Department and that we ask that you be seen in follow up. We will electronically transmit a record of today's note if your PCP is in our system *If you do not have a primary care provider please contact the [facility] Resource line at [phone]. They will ask some questions about your medical history and help get you set up with a doctor in the community. *Return to Emergency Department if you should have any new, worsening or concerning symptoms, such as [fever greater than 101 F, shaking chills, worsening pain, persistent vomiting or other bothersome symptoms] Prescriptions: New doxycycline hyclate 100 mg tablet 100 mg PO BID Qty: 20 RF: 0 No Action venlafaxine [Effexor XR] 75 MG capsule,extended release 24hr 2 tab PO QAM Qty: 0 RF: 0 lamotrigine [Lamictal] 100 MG tablet 200 mg PO HS Qty: 0 RF: 0 atorvastatin [Lipitor] 20 MG tablet 20 mg PO HS Qty: 0 RF: 0 trazodone 100 MG tablet 2 tab PO HS Qty: 0 RF: 0 multivitamin [Multiple Vitamins] 1 EACH tablet 1 tab PO QDAY Qty: 0 RF: 0 cholecalciferol (vitamin D3) [Vitamin D3] 1,000 UNIT tablet 1,000 unit PO QDAY Qty: 0 RF: 0 latanoprost 0.005 % drops 1 drp OPHTH QAM Qty: 0 RF: 0 losartan 100 MG tablet 100 mg PO QAM Qty: 0 RF: 0 diclofenac sodium 1 % Gel 2 g TOPICAL QAM RF: 0 Vraylar 1.5 mg Capsule 1.5 mg PO DAILY RF: 0 oxycodone 5 mg Tablet 5 mg PO Q3HR PRN (Reason: Pain, Moderate (4-6)) Qty: 40 RF: 0 hydroxyzine pamoate 25 mg Capsule 25 mg PO Q6HR PRN (Reason: Nausea) Qty: 40 RF: 0 Referrals: Corrina Ramsay PA-C [Primary Care Provider] -
[2021-02-13 21:00] VITALS: BP 141/65; PULSE 65; O2SAT 99
== END 2021-02-13 21:18 | disposition home or self-care (01) ==
PROVIDERS: Emergency Provider Emergency Medicine; PCP Physician Assistant Medical
DX: M70.22 Olecranon bursitis, left elbow (principal); Z23 Encounter for immunization
CPT/HCPCS: 73080; 90471; 99283; 90715

== ENCOUNTER → 2021-04-28 12:57 | Outpatient (CLI) | payer OTHER, SELFPAY ==
[2019-02-24 15:28] VITALS: BMI 29.8
--- NOTE | 2021-04-28 12:59 | DI.CT.S_ITS ---
PROCEDURE: CT CHEST WO CON INDICATIONS: Other disorders of lung TECHNIQUE: Noncontrast 2.0-2.5 mm thick sections acquired from the pulmonary apices to the posterior costophrenic angles. 7 mm thick axial MIP and 5 mm coronal and sagittal reformats were then acquired. A low radiation dose technique was utilized. COMPARISON: [facility], CT, CT CHEST WO CON, 02/25/2020, 15:42. FINDINGS: Image quality: Diagnostic, given the low radiation dose technique. Lungs and pleura: Scattered subsegmental atelectasis and/or scarring. No focal consolidation. No pleural effusion or pneumothorax. Calcified granuloma in the right upper lobe. Unchanged appearance of 1 mm nodule seen in the left lung base since the prior study. Mediastinum: Heart size is normal. Mild coronary artery calcifications. No pericardial effusion. No mediastinal adenopathy by size criteria. Thoracic aorta and central pulmonary arteries are normal in size. Esophagus is normal in caliber. No hiatal hernia. Bones and chest wall: No suspicious bony lesions. No vertebral body compression fractures. No axillary or supraclavicular adenopathy by size criteria. Thyroid gland negative . Abdomen: Visualized upper abdomen solid organs and bowel loops appear normal in the absence of contrast. IMPRESSION: Unchanged appearance of 1 mm left lung base pulmonary nodule. No further follow-up necessary for this finding. Dictated by: Anatoliy Dailey M.D. on 04/28/2021 at 14:03 Approved by: Anatoliy Dailey M.D. on 04/28/2021 at 14:08
== END ==
PROVIDERS: PCP Physician Assistant Medical; Referring Provider Physician Assistant Medical; Visit Provider Physician Assistant Medical
DX: J98.4 Other disorders of lung (principal); R91.1 Solitary pulmonary nodule
CPT/HCPCS: 71250

== ENCOUNTER 2021-08-22 14:36 | Emergency (ER) | payer OTHER, SELFPAY ==
[2019-02-24 15:28] VITALS: BMI 29.8
[2021-08-22 14:46] VITALS: BP 142/66; PULSE 81; RESP 20; TEMP 36.6; O2SAT 99
[2021-08-22 15:30] LABS: COVID19 -Nasal RAPID Negative (Negative)
--- NOTE | 2021-08-22 15:59 | ED.FEVER ---
HPI - Fever <Pedro Garcia PA-C - Last Filed: 08/22/21 16:03> General Chief Complaint: Fever Stated Complaint: night sweats Time Seen by Provider: 08/22/21 14:53 Source: patient Mode of arrival: Ambulatory History of Present Illness HPI Narrative: 70-year-old male with no reported past medical history presents to the ED with 3 days of night sweats, cough. Patient denies fevers, chills, chest pain, sore throat, nasal congestion, shortness of breath, nausea, vomiting, lightheadedness, syncope. Patient is vaccinated for COVID-19, including a booster. Related Data Home Medications Medication Instructions Recorded Confirmed atorvastatin 20 mg tablet (Lipitor) 20 mg PO HS #0 04/10/11 02/24/19 cholecalciferol (vitamin D3) 25 1,000 unit PO QDAY #0 04/10/11 02/24/19 mcg (1,000 unit) tablet (Vitamin D3) lamotrigine 100 mg tablet 200 mg PO HS #0 04/10/11 02/24/19 (Lamictal) multivitamin (Multiple Vitamins) 1 tab PO QDAY #0 04/10/11 02/12/19 trazodone 100 mg tablet 2 tab PO HS #0 04/10/11 02/24/19 venlafaxine 75 mg capsule,extended 2 tab PO QAM #0 04/10/11 02/24/19 release 24 hr (Effexor XR) latanoprost 0.005 % eye drops 1 drp OPHTH QAM #0 04/11/17 02/24/19 losartan 100 mg tablet 100 mg PO QAM #0 04/11/17 02/24/19 cariprazine 1.5 mg capsule 1.5 mg PO DAILY 02/12/19 02/24/19 (Vraylar) diclofenac sodium 1 % topical gel 2 g TOPICAL QAM 02/12/19 02/24/19 Previous Rx's Medication Instructions Recorded hydroxyzine pamoate 25 mg capsule 25 mg PO Q6HR PRN #40 cap 02/25/19 oxycodone 5 mg tablet 5 mg PO Q3HR PRN #40 tab 02/25/19 doxycycline hyclate 100 mg tablet 100 mg PO BID #20 tab 02/13/21 Allergies Allergy/AdvReac Type Severity Reaction Status Date / Time No Known Allergies Allergy Uncoded 02/24/19 11:24 Review of Systems <Pedro Garcia PA-C - Last Filed: 08/22/21 16:03> Review of Systems ROS Unobtainable: All systems reviewed & are unremarkable except as noted in HPI and below Constitutional Constitutional: Denies chills, Denies fatigue, Denies fever(s), Denies frequent falls, Reports headache(s), Denies lethargy, Reports night sweats and Denies weakness Eyes Eyes: Denies change in vision, Denies eye discharge, Denies irritation and Denies loss of vision ENT Ears, Nose, Mouth, and Throat: Denies change in voice, Denies dizziness, Reports headache(s), Denies neck pain, Denies sore throat and Denies throat swelling Cardiovascular Cardiovascular: Denies chest pain, Denies irregular heart rhythm, Denies lightheadedness, Denies palpitations, Denies dyspnea, Denies dyspnea on exertion and Denies orthopnea Respiratory Respiratory: Denies cough, Denies dyspnea, Denies dyspnea on exertion and Denies wheezing Gastrointestinal Gastrointestinal: Denies abdominal pain, Denies change in bowel habits, Denies diarrhea, Denies nausea and Denies vomiting Genitourinary Genitourinary: Denies hematuria, Denies flank pain, Denies urinary incontinence and Denies urinary urgency Musculoskeletal Musculoskeletal: Denies back pain, Denies muscle weakness, Denies neck pain, Denies numbness and Denies tingling Integumentary/Breasts Skin/Breast: Denies pruritus, Denies erythema, Denies rash and Denies wounds Neurologic Neurologic: Denies behavioral changes, Denies confusion, Denies dizziness, Denies frequent falls, Reports headache(s), Denies loss of vision, Denies numbness, Denies tingling and Denies weakness Psychiatric Psychiatric: Denies anxiety, Denies behavioral changes, Denies confusion, Denies depression, Denies homicidal ideation and Denies suicidal ideation Endocrine Endocrine: Denies fatigue, Denies flushing and Denies palpitations Hematologic/Lymphatic Hematologic/Lymphatic: Denies easy bruising Allergic/Immunologic Allergic/Immunologic: Denies urticaria, Denies throat swelling and Denies wheezing Patient History <Pedro Garcia PA-C - Last Filed: 08/22/21 16:03> Medical History Bilateral knee pain Depression Eye pressure Hepatitis A 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 HLD (hyperlipidemia) HTN (hypertension) Overactive bladder Pectus excavatum Pneumonia Sleep apnea Substance abuse in remission Surgical History Hx of tonsillectomy Social History household members: none Smoking Status: Never smoker alcohol intake: former Smoking Status: Never smoker Substance Use Type: former substance user Exam <Pedro Garcia PA-C - Last Filed: 08/22/21 16:03> Narrative Exam Narrative: Const General:?cooperative, healthy appearing and comfortable HENMT Head:?normal to inspection Ears:?hearing grossly normal bilaterally Nose:?external nose normal Face and sinus:?normal facial exam and sinuses nontender Mouth:?oral mucosae normal Throat:?posterior oropharynx normal Eyes General:?appearance normal, both eyes and all related structures Neck Neck:?normal visual inspection and no lymphadenopathy noted Resp Effort & Inspection:?normal respiratory effort Auscultation:?clear to auscultation bilaterally Cardio Rate:?regular rate Rhythm:?regular rhythm Neuro General:?patient alert, patient awake and patient oriented x3 Initial Vital Signs Initial Vital Signs: Vital Signs Temperature 97.9 F 08/22/21 14:46 Pulse Rate 81 08/22/21 14:46 Respiratory Rate 20 08/22/21 14:46 Blood Pressure 142/66 H 08/22/21 14:46 Pulse Oximetry 99 08/22/21 14:46 <Corina Leija DO - Last Filed: 08/22/21 19:50> Initial Vital Signs Initial Vital Signs: Vital Signs Temperature 97.9 F 08/22/21 14:46 Pulse Rate 81 08/22/21 14:46 Respiratory Rate 20 08/22/21 14:46 Blood Pressure 142/66 H 08/22/21 14:46 Pulse Oximetry 99 08/22/21 14:46 Course <Pedro Garcia PA-C - Last Filed: 08/22/21 16:03> Orders Ordered: ED Orders 08/22/21 14:48 COVID19 -Nasal swab/Pre-Proc Stat Vital Signs Vital signs: Vital Signs - 8 hr 08/22/21 14:46 Temperature 97.9 F Pulse Rate 81 Respiratory Rate 20 Blood Pressure 142/66 H Pulse Oximetry 99 <Corina Leija DO - Last Filed: 08/22/21 19:50> Orders Ordered: ED Orders 08/22/21 14:48 COVID19 -Nasal swab/Pre-Proc Stat Vital Signs Vital signs: Vital Signs - 8 hr 08/22/21 14:46 Temperature 97.9 F Pulse Rate 81 Respiratory Rate 20 Blood Pressure 142/66 H Pulse Oximetry 99 MDM - Fever <Pedro Garcia PA-C - Last Filed: 08/22/21 16:03> Lab Data Lab results narrative: COVID-19 negative Labs: Lab Results 08/22/21 Range/Units 14:48 SARS-CoV-2 (PCR) Negative (Negative) MDM Narrative Medical decision making narrative: 70-year-old male with no reported past medical history presents to the ED with 3 days of night sweats, cough. Concern for COVID-19 infection versus other viral syndrome. Will test for COVID-19, discharged home, inform patient of result. Patient counseled on ED return precautions, isolation/quarantine guidelines. Patient verbalized understanding. Patient was COVID negative. <Corina Leija DO - Last Filed: 08/22/21 19:50> Lab Data Labs: Lab Results 08/22/21 Range/Units 14:48 SARS-CoV-2 (PCR) Negative (Negative) Discharge Plan Departure Patient Disposition: Home Clinical Impression: URI (upper respiratory infection) Instructions: DI for COVID-19 (Suspected or Confirmed ) Activity Restrictions/Additional Instructions: You were evaluated in the ED for flu-like symptoms.? You were tested for COVID and we will inform you of the results. Please return to the ED if you have worsening shortness of breath, chest pain.? If you are positive, please isolate/quarantine per CDC guidelines, which currently states that you isolate/quadrant in for 5 days since the start of your symptoms.? After 5 days, if you do not have symptoms such as fever, runny nose, you may go out in public but with face mask at all times. Prescriptions: No Action venlafaxine [Effexor XR] 75 MG capsule,extended release 24hr 2 tab PO QAM Qty: 0 0RF lamotrigine [Lamictal] 100 MG tablet 200 mg PO HS Qty: 0 0RF atorvastatin [Lipitor] 20 MG tablet 20 mg PO HS Qty: 0 0RF trazodone 100 MG tablet 2 tab PO HS Qty: 0 0RF multivitamin [Multiple Vitamins] 1 EACH tablet 1 tab PO QDAY Qty: 0 0RF cholecalciferol (vitamin D3) [Vitamin D3] 1,000 UNIT tablet 1,000 unit PO QDAY Qty: 0 0RF latanoprost 0.005 % drops 1 drp OPHTH QAM Qty: 0 0RF losartan 100 MG tablet 100 mg PO QAM Qty: 0 0RF diclofenac sodium 1 % Gel 2 g TOPICAL QAM 0RF Vraylar 1.5 mg Capsule 1.5 mg PO DAILY 0RF oxycodone 5 mg Tablet 5 mg PO Q3HR PRN (Reason: Pain, Moderate (4-6)) Qty: 40 0RF hydroxyzine pamoate 25 mg Capsule 25 mg PO Q6HR PRN (Reason: Nausea) Qty: 40 0RF doxycycline hyclate 100 mg tablet 100 mg PO BID Qty: 20 0RF Referrals: Corrina Ramsay PA-C [Primary Care Provider] - <Corina Leija DO - Last Filed: 08/22/21 19:50> Cosign ED Attending Cosignature Attestation: I was immediately available in the department for consultation. Documentation has been reviewed.
== END 2021-08-22 16:18 | disposition home or self-care (01) ==
PROVIDERS: Emergency Provider Student in an Organized Health Care Education/Training Program; PCP Physician Assistant Medical
DX: J06.9 Acute upper respiratory infection, unspecified (principal); Z20.822 Contact with and (suspected) exposure to COVID-19
CPT/HCPCS: 87635; 99281; C9803